=== PATIENT | female | born 1995 | race American Indian/Alaskan Native ===

== ENCOUNTER 2018-08-28 19:22 | Emergency (ER) | payer OTHER ==
--- NOTE | 2018-08-28 19:58 | Emergency Department Report ---
Blank Doc - Documentation Documentation: 23 y o female presents to Ed cc of pelvic pain, n/v states irregular cycles + home test labs/ua [facility] eval
[2018-08-28 20:22] LABS: Basophils % (Auto) 0.6 % (0.0-1.8); Eosinophils # (Auto) 0.1 K/mm3 (0.0-0.4); Eosinophils % (Auto) 1.2 % (0.0-4.3); Hematocrit 40.8 % (30.3-42.9); Hemoglobin 13.6 gm/dl (10.1-14.3); Lymphocytes # (Auto) 1.5 K/mm3 (1.2-5.4); Lymphocytes % (Auto) 26.6 % (13.4-35.0); Mean Corpuscular HGB Conc 33 % (30-34); Mean Corpuscular Volume 92 fl (79-97); Monocytes # (Auto) 0.6 K/mm3 (0.0-0.8); Monocytes % (Auto) 10.1 % (0.0-7.3); Platelet Count 204 K/mm3 (140-440); Red Blood Count 4.44 M/mm3 (3.65-5.03); Red Cell Distribution Width 12.2 % (13.2-15.2)
[2018-08-28 20:33] LABS: BUN/Creatinine Ratio 13; Blood Urea Nitrogen 8 mg/dL (7-17); Calcium 11.5 mg/dL (8.4-10.2); Hemolysis Index 135
[2018-08-28 20:36] LABS: Bilirubin,Urine NEG (Negative); Blood,Urine SM (Negative); Color,Urine Yellow (Yellow); Mucus,Urine FEW /HPF; Protein,Urine <15 mg/dL mg/dL (Negative); Urobilinogen,Urine < 2.0 mg/dL (<2.0)
--- NOTE | 2018-08-29 00:58 | Emergency Department Report ---
ED Female HPI - General Chief complaint: Abdominal Pain Stated complaint: NAUSEA/ABD PAIN Time Seen by Provider: 08/28/18 19:54 Source: patient Mode of arrival: Ambulatory Limitations: No Limitations - History of Present Illness Initial comments: Patient is a A0 and a 23-year-old [place] female with no past medical history presents to the ED with the complaint of acute onset persistent suprapubic pain, vaginal discharge, urinary frequency and urgency and dysuria for the last 1 week. Patient states that she recently tested positive for pregn john at home, and has been having intermittent nausea and vomiting every morning for the last 4 weeks. Patient states that her last major surgical was over 2 months ago. Patient denies fever, chills, vaginal bleeding, vaginal discharge, diarrhea, low back pain, dizziness, headache, chest pain, shortness of breath, dysuria or syncope. MD Complaint: vaginal discharge, pelvic pain, other (recently tested positive for ) -: Gradual, week(s) (1) Location: suprapubic Radiation: suprapubic Severity: moderate Severity scale (0 -10): 6 Quality: cramping, dull Consistency: intermittent Improves with: movement Worsens with: none Are you Now?: Yes Last Menstrual Period: 06/21/18 EDC: 03/28/19 Associated Symptoms: abdominal pain, nausea/vomiting. denies: vaginal discharge, vaginal bleeding, fever/chills, headaches, loss of appetite, dysuria, hematuria, rash, seizure, shortness of breath, syncope, weakness - Related Data Sexually active: Yes : 1 Para: 0 A: 0 Previous Rx's Medication Instructions Recorded Last Taken Type Ciprofloxacin HCl [Cipro] 500 mg PO Q12H #14 tab 08/19/14 Unknown Rx Ibuprofen [Motrin 400 MG tab] 400 mg PO Q8H PRN #30 tablet 08/19/14 Unknown Rx traMADol [Ultram] 50 mg PO Q6HR PRN #12 tablet 08/19/14 Unknown Rx Acetaminophen [Acetaminophen TAB] 500 mg PO Q4HR #30 tablet 08/29/18 Unknown Rx Pnv No.95/Ferrous Fum/Folic AC 1 each PO DAILY #30 tablet 08/29/18 Unknown Rx [Prenavite Tablet] Promethazine [Phenergan] 25 mg PO Q6HR PRN #24 tab 08/29/18 Unknown Rx Allergies Allergy/AdvReac Type Severity Reaction Status Date / Time latex AdvReac Itching Verified 08/19/14 09:15 ED Review of Systems ROS: Stated complaint: NAUSEA/ABD PAIN Other details as noted in HPI Comment: All other systems reviewed and negative Constitutional: no symptoms reported, see HPI. denies: diaphoresis, fever, malaise, weakness Eyes: as per HPI. denies: eye pain, eye discharge, vision change ENT: as per HPI. denies: ear pain, throat pain, dental pain, hearing loss Respiratory: no symptoms reported, see HPI. denies: cough, orthopnea, shortness of breath, SOB with exertion, SOB at rest Cardiovascular: as per HPI. denies: chest pain, palpitations, dyspnea on exertion, edema, syncope, paroxysmal nocturnal dyspnea Endocrine: no symptoms reported, see HPI. denies: excessive sweating, intoleran ce to cold, increased hunger, increased urine, unexplained weight gain, unexplained weight loss Gastrointestinal: as per HPI, abdominal pain, nausea, vomiting. denies: diarrh ea, constipation, hematemesis Genitourinary: as per HPI. denies: urgency, frequency, hematuria, abnormal menses Musculoskeletal: as per HPI. denies: back pain, arthralgia Skin: as per HPI. denies: change in color, change in hair/nails Neurological: as per HPI. denies: headache, weakness, numbness, paresthesias Psychiatric: as per HPI Hematological/Lymphatic: as per HPI ED Past Medical Hx - Past Medical History Additional medical history: ovarian cyst - Surgical History Past Surgical History?: No - Social History Smoking Status: Current Every Day Smoker - Medications Home Medications: Home Medications Medication Instructions Recorded Confirmed Last Taken Type Ciprofloxacin HCl [Cipro] 500 mg PO Q12H #14 tab 08/19/14 Unknown Rx Ibuprofen [Motrin 400 MG tab] 400 mg PO Q8H PRN #30 tablet 08/19/14 Unknown Rx traMADol [Ultram] 50 mg PO Q6HR PRN #12 tablet 08/19/14 Unknown Rx Acetaminophen [Acetaminophen TAB] 500 mg PO Q4HR #30 tablet 08/29/18 Unknown Rx Pnv No.95/Ferrous Fum/Folic AC 1 each PO DAILY #30 tablet 08/29/18 Unknown Rx [Prenavite Tablet] Promethazine [Phenergan] 25 mg PO Q6HR PRN #24 tab 08/29/18 Unknown Rx ED Physical Exam - General Limitations: No Limitations General appearance: alert, in no apparent distress - Head Head exam: Present: atraumatic, normocephalic, normal inspection - Eye Eye exam: Present: normal appearance, PERRL, EOMI - ENT ENT exam: Present: normal exam, normal orophraynx, mucous membranes moist, TM's normal bilaterally, normal external ear exam - Neck Neck exam: Present: normal inspection, full ROM. Absent: tenderness, lympha denopathy - Respiratory Respiratory exam: Present: normal lung sounds bilaterally. Absent: respiratory distress, wheezes, chest wall tenderness, accessory muscle use, decreased breath sounds, prolonged expiratory - Cardiovascular Cardiovascular Exam: Present: regular rate, normal rhythm, normal heart sounds - GI/Abdominal GI/Abdominal exam: Present: soft, tenderness (suprapubic mildly). Absent: distended, guarding, rebound, hyperactive bowel sounds, hypoactive bowel sounds, organomegaly - Rectal Rectal exam: Present: deferred - External exam: Present: other (patient declined pelvic exam) Speculum exam: Present: other (Patient declined) - Extremities Exam Extremities exam: Present: normal inspection - Back Exam Back exam: Present: normal inspection, full ROM. Absent: tenderness, CVA ten derness (R), CVA tenderness (L), muscle spasm, paraspinal tenderness, vertebral tenderness - Neurological Exam Neurological exam: Present: alert, oriented X3, CN II-XII intact, normal gait, reflexes normal - Psychiatric Psychiatric exam: Present: normal affect - Skin Skin exam: Present: warm, dry, intact ED Course Vital Signs 08/28/18 19:54 Temperature 98.4 F Pulse Rate 66 Respiratory 20 Rate Blood Pressure 102/53 O2 Sat by Pulse 98 Oximetry - Reevaluation(s) Reevaluation #1: 08/29/18 02:37 Patient is alert and oriented 3 and is not in distress. Labs were drawn and pa tient today for pain and nausea. Transvaginal ultrasound was also ordered. Laboratory results reviewed and are unremarkable. HCG Quant of 28,147. Urinalysis is unremarkable with normal bleeding. Transvaginal ultrasound showed an IUP of approximately 6 weeks and 6 days. The heart tones 126 bpm. On reevaluation, the patient's pain is well controlled and patient will be sent home and advised follow-up with HEPATOLOGY PHYSICIAN physician in 5-7 days for reevaluation or return to the ED immediately if symptoms get worse. ED Medical Decision Making - Lab Data Result diagrams: 08/28/18 20:06 08/28/18 20:06 - Radiology Data Radiology results: report reviewed, image reviewed An IUP of approximately 6 weeks and 6 days with a FHT of 126 bpm - Medical Decision Making Patient is alert and oriented 3 and is not in distress. Labs were drawn and patient today for pain and nausea. Transvaginal ultrasound was also ordered. Laboratory results reviewed and are unremarkable. HCG Quant of 28,147. Urinalysis is unremarkable with normal bleeding. Transvaginal ultrasound showed an IUP of approximately 6 weeks and 6 days. The heart tones 126 bpm. On reevaluation, the patient's pain is well controlled and patient will be sent home and advised follow-up with HEPATOLOGY PHYSICIAN physician in 5-7 days for reevaluation or return to the ED immediately if symptoms get worse. - Differential Diagnosis Threatened miscarriage, acute urinary tract infection, pelvic pain Critical care attestation.: If time is entered above; I have spent that time in minutes in the direct care of this critically ill patient, excluding procedure time. ED Disposition Clinical Impression: Abdominal pain affecting , Threatened miscarriage Disposition: - TO HOME OR SELFCARE Is pt being admited?: No Does the pt Need Aspirin: No Condition: Stable Instructions: Abdominal Pain (ED), Threatened Miscarriage (ED), (ED) Additional Instructions: Take pain medication as needed, principally Tylenol. Follow-up with your primary care physician or the HEPATOLOGY PHYSICIAN physician in 5-7 days for reevaluation. Return to the ED immediately if symptoms get worse. Maintain complete pelvic rest until evaluated by the HEPATOLOGY PHYSICIAN physician Prescriptions: Acetaminophen [Acetaminophen TAB] 500 mg PO Q4HR #30 tablet Promethazine [Phenergan] 25 mg PO Q6HR PRN #24 tab PRN Reason: Nausea Pnv No.95/Ferrous Fum/Folic AC [Prenavite Tablet] 1 each PO DAILY #30 tablet Referrals: RADHA MAGANA MD [Primary Care Provider] - 3-5 Days Time of Disposition: 02:42 Print Language: TURKMEN
--- NOTE | 2018-08-29 01:20 | Ultrasound Report ---
PROCEDURE: US OB <= 14 WEEKS FETUS TECHNIQUE: Transabdominal imaging was obtained of the pelvis. HISTORY: Positive pregancy test COMPARISONS: None FINDINGS: The uterus measures 8.3 x 6.2 x 6.1 cm. The endometrial thickness is 11.0 mm. Within the uterus is a well formed gestational sac corresponding to a 6 week 6 day . Within the sac is a yolk sac a nd pole corresponding to a 6 week 6 day . The heart rate is 126 BPM. There is no evidence of subchorionic hemorrhage. There is minimal free fluid seen. The left ovary is normal size contour blood flow and echotexture measuring 3.2 x 1.6 x 1.6 cm. The right ovary measures 3.9 x 2.5 x 3.4 cm. Within the right ovary is a complex cyst measuring 2.1 x 1.0 x 2 cm. This most likely represents a corpus luteum cyst. The blood flow is normal to the right ovary. IMPRESSION: Single viable IUP, 6 weeks 6 days. The heart rate is 126 BPM. Probable corpus luteum cyst in the right ovary. No evidence of ovarian torsion. Minimal free fluid in the cul-de-sac.. This document is electronically signed by Pritesh Parikh MD., Aug 29 2018 01:18:23 AM ET
--- NOTE | 2018-08-29 01:35 | Ultrasound Report ---
PROCEDURE: US OB TRANSVAGINAL TECHNIQUE: Real-time transvaginal sonography of the uterus, placenta, amniotic fluid, adnexa, and fe tus was performed with image documentation. Measurements were obtained to determine age/size. M -mode Doppler was used to document heartbeat. HISTORY: Positive pregancy test COMPARISONS: None . FINDINGS: CRL: 8 mm, which corresponds to a gestational age of: 6 weeks, 6 days. Yolk Sac: Normal . Embryonic Cardiac Activity: 1 26 bpm . Gestational Sac: Normal . Right Ovary: Normal . Left Ovary: Normal . Estimated delivery date: 04/18/2019 . Comment: Complete anatomic survey at 18-20 weeks suggested . IMPRESSION: 1. Single living intrauterine gestation at approximately 6 weeks 6 days . 2. EDC by US 04/18/2019 . This document is electronically signed by Analia Campbell DO., Aug 29 2018 01:33:25 AM ET
[2018-08-29 02:59] VITALS: BP 119/37
== END 2018-08-29 02:59 | disposition home or self-care (01) ==
LOC: ED 19:22
DX: O20.0 Threatened abortion (principal); F17.200 Nicotine dependence, unspecified, uncomplicated; Z79.899 Other long term (current) drug therapy; Z91.040 Latex allergy status; Z3A.01 Less than 8 weeks gestation of pregnancy
CPT/HCPCS: 36415; 76801; 76817; 80048; 81001; 84702; 84703; 85025

== ENCOUNTER 2018-09-04 09:33 | Emergency (ER) | payer MEDICAID, OTHER ==
[2018-09-04 09:37] VITALS: BP 103/50
--- NOTE | 2018-09-04 09:59 | Emergency Department Report ---
ED HPI - General Chief complaint: Vaginal Bleeding Stated complaint: /VAGINAL BLEEDING Time Seen by Provider: 09/04/18 09:58 Source: patient Mode of arrival: Ambulatory Limitations: No Limitations - History of Present Illness Initial comments: 23 YO TO ER WITH VAG BLEED IN . LMP 2/20 G0 SEE EMR SHE IS HERE OFTEN MD Complaint: vaginal bleeding -: Gradual Associated symptoms: denies other symptoms Vaginal bleeding: light :: Yes Pre-ibis care: followed by OB - Related Data Allergies Allergy/AdvReac Type Severity Reaction Status Date / Time latex AdvReac Itching Verified 08/19/14 09:15 ED Review of Systems ROS: Stated complaint: /VAGINAL BLEEDING Other details as noted in HPI Comment: All other systems reviewed and negative ED Past Medical Hx - Past Medical History Previous Medical History?: Yes Additional medical history: ovarian cyst - Surgical History Past Surgical History?: No - Family History Family history: no significant - Social History Smoking Status: Never Smoker Substance Use Type: None ED Physical Exam - General Limitations: No Limitations General appearance: alert - Head Head exam: Present: atraumatic, normocephalic - Eye Eye exam: Present: normal appearance, PERRL - ENT ENT exam: Present: mucous membranes moist - Neck Neck exam: Present: normal inspection - Respiratory Respiratory exam: Present: normal lung sounds bilaterally - GI/Abdominal GI/Abdominal exam: Present: soft, normal bowel sounds - Rectal Rectal exam: Present: deferred - Extremities Exam Extremities exam: Present: normal inspection, full ROM - Back Exam Back exam: Present: normal inspection, full ROM. Absent: tenderness, CVA tenderness (R), CVA tenderness (L) - Neurological Exam Neurological exam: Present: alert, oriented X3, normal gait - Psychiatric Psychiatric exam: Present: normal affect, normal mood - Skin Skin exam: Present: warm, dry, intact ED Course Vital Signs 09/04/18 09:36 Temperature 98.3 F Pulse Rate 70 Respiratory 16 Rate Blood Pressure 103/50 O2 Sat by Pulse 100 Oximetry ED Medical Decision Making - Lab Data Result diagrams: 09/04/18 09:46 09/04/18 Unknown - Radiology Data Radiology results: report reviewed, image reviewed - Medical Decision Making Lab Results 09/04/18 09/04/18 09/04/18 Range/Units 09:46 09:46 09:46 WBC 4.5 (4.5-11.0) K/mm3 RBC 4.28 (3.65-5.03) M/mm3 Hgb 12.8 (10.1-14.3) gm/dl Hct 39.2 (30.3-42.9) % MCV 92 (79-97) fl MCH 30 (28-32) pg MCHC 33 (30-34) % RDW 12.0 L (13.2-15.2) % Plt Count 208 (140-440) K/mm3 Lymph % (Auto) 31.2 (13.4-35.0) % [place] % (Auto) 8.9 H (0.0-7.3) % Eos % (Auto) 1.0 (0.0-4.3) % Baso % (Auto) 1.0 (0.0-1.8) % Lymph # 1.4 (1.2-5.4) K/mm3 [place] # 0.4 (0.0-0.8) K/mm3 Eos # 0.0 (0.0-0.4) K/mm3 Baso # 0.0 (0.0-0.1) K/mm3 Seg Neutrophils % 57.9 (40.0-70.0) % Seg Neutrophils # 2.6 (1.8-7.7) K/mm3 Sodium (137-145) mmol/L Potassium (3.6-5.0) mmol/L Chloride (98-107) mmol/L Carbon Dioxide (22-30) mmol/L Anion Gap mmol/L BUN (7-17) mg/dL Creatinine (0.7-1.2) mg/dL Estimated GFR ml/min BUN/Creatinine Ratio % Glucose (65-100) mg/dL Calcium (8.4-10.2) mg/dL HCG, Quant 71941 H (0-4) mIU/mL Urine Color (Yellow) Urine Turbidity (Clear) Urine pH (5.0-7.0) Ur Specific [place] (1.003-1.030) Urine Protein (Negative) mg/dL Urine Glucose (UA) (Negative) mg/dL Urine Ketones (Negative) mg/dL Urine Blood (Negative) Urine Nitrite (Negative) Urine Bilirubin (Negative) Urine Urobilinogen (<2.0) mg/dL Ur Leukocyte Esterase (Negative) Urine WBC (Auto) (0.0-6.0) /HPF Urine RBC (Auto) (0.0-6.0) /HPF U Epithel Cells (Auto) (0-13.0) /HPF Urine Bacteria (Auto) (Negative) /HPF Urine Mucus /HPF Blood Type O POSITIVE 09/04/18 09/04/18 Range/Units 09:57 Unknown WBC (4.5-11.0) K/mm3 RBC (3.65-5.03) M/mm3 Hgb (10.1-14.3) gm/dl Hct (30.3-42.9) % MCV (79-97) fl MCH (28-32) pg MCHC (30-34) % RDW (13.2-15.2) % Plt Count (140-440) K/mm3 Lymph % (Auto) (13.4-35.0) % [place] % (Auto) (0.0-7.3) % Eos % (Auto) (0.0-4.3) % Baso % (Auto) (0.0-1.8) % Lymph # (1.2-5.4) K/mm3 [place] # (0.0-0.8) K/mm3 Eos # (0.0-0.4) K/mm3 Baso # (0.0-0.1) K/mm3 Seg Neutrophils % (40.0-70.0) % Seg Neutrophils # (1.8-7.7) K/mm3 Sodium 135 L (137-145) mmol/L Potassium 4.1 (3.6-5.0) mmol/L Chloride 99.6 (98-107) mmol/L Carbon Dioxide 25 (22-30) mmol/L Anion Gap 15 mmol/L BUN 6 L (7-17) mg/dL Creatinine 0.6 L (0.7-1.2) mg/dL Estimated GFR > 60 ml/min BUN/Creatinine Ratio 10 % Glucose 95 (65-100) mg/dL Calcium 9.7 (8.4-10.2) mg/dL HCG, Quant (0-4) mIU/mL Urine Color Yellow (Yellow) Urine Turbidity Cloudy (Clear) Urine pH 7.0 (5.0-7.0) Ur Specific [place] 1.018 (1.003-1.030) Urine Protein <15 mg/dl (Negative) mg/dL Urine Glucose (UA) Neg (Negative) mg/dL Urine Ketones Neg (Negative) mg/dL Urine Blood Lg (Negative) Urine Nitrite Neg (Negative) Urine Bilirubin Neg (Negative) Urine Urobilinogen < 2.0 (<2.0) mg/dL Ur Leukocyte Esterase Neg (Negative) Urine WBC (Auto) 11.0 H (0.0-6.0) /HPF Urine RBC (Auto) 3.0 (0.0-6.0) /HPF U Epithel Cells (Auto) 5.0 (0-13.0) /HPF Urine Bacteria (Auto) 2+ (Negative) /HPF Urine Mucus 2+ /HPF Blood Type Vital Signs 09/04/18 09:36 Temperature 98.3 F Pulse Rate 70 Respiratory 16 Rate Blood Pressure 103/50 O2 Sat by Pulse 100 Oximetry LABS NOTED US NOTED DC HOME WITH PELVIC REST AND OBGYN FOLLOW UP AMBULATORY, TAKING PO WITH NORMAL VS Critical care attestation.: If time is entered above; I have spent that time in minutes in the direct care of this critically ill patient, excluding procedure time. ED Disposition Clinical Impression: Subchorionic hematoma, , Threatened miscarriage Disposition: DC-01 TO HOME OR SELFCARE Is pt being admited?: No Does the pt Need Aspirin: No Condition: Stable Instructions: Threatened Miscarriage (ED) Additional Instructions: DIET TOLERATED MEDS ORDERED TODAY IN ER FOLLOW INSTRUCTIONS ON THE BOTTLE FOLLOW UP PCP WITHIN 48 HOURS TO ENSURE YOU ARE GETTING BETTER ACTIVITY TOLERATED TYLENOL FOR PAIN OR FEVER RETURN TO THE ER FOR WORSENING SYMPTOMS NOT RELIEVED BY YOUR MEDICATIONS. FOLLOW UP WITH OBGYN WITHIN 48 HOURS FOR BLOOD RECHECK PELVIC REST Referrals: PRIMARY CARE, [Primary Care Provider] - 3-5 Days GAURI SERRA MD [Staff Physician] - 3-5 Days Forms: Work/School Release Form(ED) Time of Disposition: 10:57
[2018-09-04 10:03] LABS: Hematocrit 39.2 % (30.3-42.9); Hemoglobin 12.8 gm/dl (10.1-14.3); Lymphocytes # (Auto) 1.4 K/mm3 (1.2-5.4); Lymphocytes % (Auto) 31.2 % (13.4-35.0); Mean Corpuscular HGB Conc 33 % (30-34); Mean Corpuscular Volume 92 fl (79-97); Monocytes # (Auto) 0.4 K/mm3 (0.0-0.8); Monocytes % (Auto) 8.9 % (0.0-7.3); Platelet Count 208 K/mm3 (140-440); Red Blood Count 4.28 M/mm3 (3.65-5.03)
[2018-09-04 10:32] LABS: Bacteria,Urine 2+ /HPF (Negative); Bilirubin,Urine NEG (Negative); Blood,Urine LG (Negative); Color,Urine Yellow (Yellow); Mucus,Urine 2+ /HPF; Protein,Urine <15 mg/dL mg/dL (Negative); Urobilinogen,Urine < 2.0 mg/dL (<2.0)
[2018-09-04 10:32] LABS: BUN/Creatinine Ratio 10; Blood Urea Nitrogen 6 mg/dL (7-17); Calcium 9.7 mg/dL (8.4-10.2); Hemolysis Index 8
--- NOTE | 2018-09-04 11:05 | Ultrasound Report ---
ULTRASOUND OB LESS THAN 14 WEEKS FETUS ULTRASOUND OB TRANSVAGINAL HISTORY: Vaginal bleeding during . COMPARISON: 08/29/18. TECHNIQUE: Transabdominal and transvaginal ultrasound with color doppler interrogation. FINDINGS: The uterus measures 9.8 x 6.6 x 4.9 cm. No uterine mass is identified. An intrauterine gestational sac containing a pole and yolk sac are identified. Heart rate measures 165 beats per minute. [place]-rump length correlates with a 7 week, 6 day . A small subchorionic hemorrhage is suspected along the left lateral and inferior gestational sac. The ovaries are normal size, contour and echotexture. No pelvic fluid collection is identified. IMPRESSION: Viable single intrauterine as described. Small subchorionic hemorrhage.
--- NOTE | 2018-09-04 11:05 | Ultrasound Report ---
ULTRASOUND OB LESS THAN 14 WEEKS FETUS ULTRASOUND OB TRANSVAGINAL HISTORY: Vaginal bleeding during . COMPARISON: 08/29/18. TECHNIQUE: Transabdominal and transvaginal ultrasound with color doppler interrogation. FINDINGS: The uterus measures 9.8 x 6.6 x 4.9 cm. No uterine mass is identified. An intrauterine gestational sac containing a pole and yolk sac are identified. Heart rate measures 165 beats per minute. [place]-rump length correlates with a 7 week, 6 day . A small subchorionic hemorrhage is suspected along the left lateral and inferior gestational sac. The ovaries are normal size, contour and echotexture. No pelvic fluid collection is identified. IMPRESSION: Viable single intrauterine as described. Small subchorionic hemorrhage.
== END 2018-09-04 11:25 | disposition home or self-care (01) ==
LOC: ED 09:33
DX: O20.0 Threatened abortion (principal); O41.8X90 Other specified disorders of amniotic fluid and membranes, unspecified trimester, not applicable or unspecified; Z91.040 Latex allergy status; Z3A.01 Less than 8 weeks gestation of pregnancy
CPT/HCPCS: 36415; 76801; 76817; 80048; 81001; 84702; 85025; 86900; 86901